=== PATIENT | female | born 1975 | race African-American/Black ===

== ENCOUNTER 2016-04-17 18:29 | Emergency (ER) | payer OTHER ==
[~2016-04-17 18:29] MED LIST: ACETAMINOPHEN PO; ASPIRIN PO; COREG PO; COREG12.5 MG PO; FLEXERIL10 MG PO; LEVAQUIN PO; LISINOPRIL PO; LORTAB 5/500 TA1 TA1 PO; NORVASC PO; ZITHROMAX1 G/PKT PO; ZOCOR PO
[2016-04-17 18:40] LABS: INFLUENZA A NEG (NEG); INFLUENZA B NEG (NEG)
== END 2016-04-17 19:37 | disposition home or self-care (01) ==
LOC: CFTX 18:29
PROVIDERS: Nurse Practitioner
DX: J11.1 Influenza due to unidentified influenza virus with other respiratory manifestations (principal); I10 Essential (primary) hypertension; Z91.14 Patient's other noncompliance with medication regimen; F41.9 Anxiety disorder, unspecified; E78.00 Pure hypercholesterolemia, unspecified; F17.210 Nicotine dependence, cigarettes, uncomplicated
CPT/HCPCS: 87804; 99283

== ENCOUNTER 2016-05-31 11:41 | Emergency (ER) | payer OTHER ==
[2016-05-31 12:06] LABS: URINE SOURCE CLEAN CATCH
[2016-05-31 12:12] LABS: URINE APPEARANCE TURBID; URINE BLOOD 2+ (NEG); URINE COLOR RED; URINE GLUCOSE NEG (NEG); URINE KETONE NEG (NEG); URINE LEUKOCYTE ESTERASE 2+ (NEG); URINE NITRATE POS (NEG); URINE PROTEIN 2+ (NEG); URINE SPECIFIC GRAVITY 1.019 (1.003-1.035); URINE UROBILINOGEN 0.2 MG/DL (NEG)
[2016-05-31 12:18] LABS: CULTURE INDICATED? YES; URBCS1 AUWI INNUM /[HPF] (0-2); URINE BACTERIA AUWI NEG (NEGATIVE); URINE SQUAMOUS EPITHELIAL CELL FEW /[HPF]; UWBCS1 AUWI 50-100 (0-5)
[2016-05-31 12:27] LABS: URINE BILIRUBIN NEG (NEG)
== END 2016-05-31 12:44 | disposition home or self-care (01) ==
LOC: CFTX 11:41
PROVIDERS: Physician Assistant
DX: N30.00 Acute cystitis without hematuria (principal); I10 Essential (primary) hypertension; F41.9 Anxiety disorder, unspecified; F17.210 Nicotine dependence, cigarettes, uncomplicated
CPT/HCPCS: 81003; 87086; 96372; 99283; J1885